=== PATIENT | female | born 1965 | race Caucasian/White ===

== ENCOUNTER 2022-02-20 23:09 | Emergency (ER) | payer OTHER ==
[~2022-02-20] VITALS: Ht 172.7 cm; Wt 78.2 kg
[2022-02-21 00:29] LABS: BASO% 0.6 % (0-3); EOS% 4.3 % (0-8); HEMATOCRIT 31.2 % (37.0-47.0); IMMATURE GRANULOCYTES 0.3 % (0.0-5.0); LYMPH% 40.6 % (15-41); MEAN CELL VOLUME 89.1 fL CALC (80.0-100.0); MEAN CORPUSCULAR HGB 28.6 pG CALC (26.0-32.0); MEAN CORPUSCULAR HGB CONC 32.1 g/dL CAL (32.0-36.0); MONO% 8.7 % (2-13); NEUT# 3.08 thou/uL (2.00-7.15); NEUT% 45.5 % (42-76); RED BLOOD COUNT 3.5 mill/uL (4.20-5.60); RED CELL DISTRI WIDTH 14.6 % (11.5-15.5)
[2022-02-21 00:44] LABS: ALBUMIN 3.7 g/dL (3.2-5.0); BILIRUBIN, TOTAL 0.2 mg/dL (0.0-1.4); CREATININE 1.2 mg/dL (0.5-1.0); POTASSIUM 4.2 mmol/l (3.5-5.1); TOTAL PROTEIN 6.2 g/dL (6.3-8.2)
[2022-02-21 02:30] VITALS: BP 119/64
[2022-02-21 02:31] LABS: URINE BILIRUBIN - DIPSTICK NEGATIVE (NEGATIVE); URINE COLOR YELLOW; URINE GLUCOSE - DIPSTICK NEGATIVE (NEGATIVE); URINE KETONE NEGATIVE (NEGATIVE); URINE PROTEIN - DIPSTICK NEGATIVE (NEG-TRACE); URINE UROBILINOGEN - DIPSTICK 0.2 E.U./dL (0.2)
[2022-02-21 02:34] LABS: URINE LEUK ESTERASE SMALL (NEGATIVE); URINE NITRITE - DIPSTICK NEGATIVE (Negative)
[2022-02-21 02:36] LABS: URINE BLOOD DIPSTICK NEGATIVE (NEGATIVE)
[2022-02-21 02:37] LABS: URINE BACTERIA MODERATE hpf; URINE EPITHELIAL CELLS MODERATE EPI/hpf (0-FEW)
[2022-02-21 03:00] VITALS: BP 125/61
[2022-02-21] MEDS ORDERED: NAPROXEN500 MG PO (03:01)
[2022-02-21] MEDS ORDERED: CIPROFLOXACN500 MG PO (03:01)
[2022-02-21 03:30] VITALS: BP 109/65
[2022-02-21 04:00] VITALS: BP 119/63
== END 2022-02-21 04:13 | disposition home or self-care (01) | DRG 556 ==
LOC: ED 23:09
PROVIDERS: Emergency Medicine
DX: M79.10 Myalgia, unspecified site (principal); N39.0 Urinary tract infection, site not specified
CPT/HCPCS: J1956; Q9967